=== PATIENT | female | born 1960 | race Caucasian/White ===

== ENCOUNTER 2016-11-29 02:34 | Emergency (ER) | payer OTHER ==
[2016-11-29 02:47] VITALS: BP 132/91; BMI 25.6
[2016-11-29 03:05] LABS: BILIRUBIN,URINE NEGATIVE (NEGATIVE); BLOOD/HEMOGLOBIN,URINE 2+ (NEGATIVE); GLUCOSE, URINE NEGATIVE (NEGATIVE); KETONES,URINE NEGATIVE (NEGATIVE); LEUKOCYTE ESTERASE ,URINE 3+ (NEGATIVE); NITRITES,URINE NEGATIVE (NEGATIVE); PROTEIN,URINE 1+ (NEGATIVE); UROBILINOGEN,URINE NORMAL (NORMAL)
--- NOTE | 2016-11-29 03:05 | DR.GENAD ---
HPI - PCP Primary Care Physician: nfd - Complaint/Symptoms Chief Complaint Doctors Comments: Patient complains of lower back pain for the past 24 hours getting worst tonight in the lower back and left leg and she thinks it is her sciatica acting up again. states she is having sharp pain in her lower back down her left leg to her foot. States the pain is 10 of 10 is why she called the ambulance. States she has had a "blue Flexeril" for pain. She has been having dysuria, fever but denies hematuria, nausea, vomiting, cold , cough, chest pain, SOB or recent trauma. Patient states something happened when she was little and she cannot take steriods according to nursing staff. She smokes 1/2 pack cigarettes daily but denies alcohol or drug usage. States she has not local doctor. Patient states she broke her back Sep 2015 and was sent to [place] and she don't know what they did. Chief Complaint:: lower back pain-lt side-pt says she thinks the pain is her sciatica-denies injury-pain o/s since last apr-worse tonight-ambulated in from ambulance - Nurses notes reviewed Nurses Notes Review: Yes - Source History Provided: Patient - Mode of Arrival Mode of Arrival: EMS - Timing Onset of Chief Complaint: 04/30/16 Came on: Gradually - Duration Duration: Constant How lon Duration: Days - Location Location: lower back pain - Modifying Factors Worsens:: movement Improves:: nothing PMH - PMH Past Medical History: Yes Past Medical History: Hypertension Past Surgical History: Yes Surgical History: CABG/Valve Surgery - Family History History of Family Medical Conditions: No Family Medical History: [place], Sudden Cardiac , Hypertension - Social History Does patient currently use any type of tobacco product: Yes Have you used tobacco products in the last 12 months: Yes Type of Tobacco Use: Cigarettes Does any household member use tobacco: Yes Alcohol Use: None Do you use any recreational Drugs:: No Lives With: Family Lives Where: Home - infectious screening In the last 2 months have you had wt loss of >10#?: NO Have you had fever, night sweats or hemotysis?: No Have you traveled outside the country in the last 6 months?: No Isolation: Standard ROS - Review of Systems Constitutional: No Symptoms Reported. negative: See HPI, Chills, Diaphoresis, Fever, Malaise, Weakness, Irritable, Fatigue, Loss of Appetite, Other Eyes: No Symptoms Reported. negative: See HPI, Eye Pain, Blurred Vision, Tearing, Discharge, Photophobia, Diplopia, Other ENTM: No Symptoms Reported. negative: See HPI, Ear Pain, Ear Discharge, Pulling on Ears, Hearing Loss, Nose Pain, Nose Discharge, Epistaxis, Nose Congestion, Mouth Pain, Mouth Swelling, Loose Teeth, Drooling, Throat Pain, Throat Swelling, Ear Foreign Body Respiratoy: No Symptoms Reported. negative: See HPI, Productive Cough, Non- Productive Cough, Moist Cough, Dry Cough, Hacking Cough, Barking Cough, Brassy Cough, Orthopnea, Short of Breath, Stridor, Wheezing, Hemoptysis, Other Cardiovascular: No Symptoms Reported. negative: See HPI, Chest Pain, Edema, Palpitations, Syncope, Cyanosis, Skin Mottling, Other Gastrointestinal/Abdominal: No Symptoms Reported. negative: See HPI, Abdominal Pain, Constipation, Diarrhea, Nausea, Vomiting, Food Intolerance, Other Genitourinary: No Symptoms Reported, Dysuria. negative: See HPI, Discharge, Frequency, Hematuria, Pain, Bleeding, Other Neurological: No Symptoms Reported. negative: See HPI, Anxiety, Depressed, Emotional Problems, Headache, Numbness, Paresthesia, Pre-existing Deficit, Seizure, Tingling, Tremors, Weakness, Dizziness, Problems Walking, Speech Problem, Other Musculoskeletal: No Symptoms Reported, Back Pain, Left, Hip Integumentary: No Symptoms Reported. negative: See HPI, Change in Color, Change in Hair/Nails, Dryness, Lesions, Lumps, Rash, Itching, Wound, Bruises, Juandice, Other Hematologic/Lymphatic: No Symptoms Reported Endocrine: No Symptoms Reported. negative: See HPI, Excessive Sweating, Flushing, Intolerance to Cold, Intolerance to Heat, Increased Hunger, Increased Thirst, Increased Urine, Unexplained Weight Gain, Unexplained Weight Loss, Failure to Thrive, Decreased Appetite, Other Psychiatric: No Symptoms Reported PE - Vital Signs Vitals: Temperature 97.8 F Pulse Rate 100 Respiratory Rate 16 Blood Pressure [Left Arm] 126/75 Blood Pressure 132/91 O2 Sat by Pulse Oximetry 100 - General Limitations: No Limitations General Appearance: Alert, In No Apparent Distress - Head Head Exam: Normal Inspection, Atraumatic, Normocephalic - Eyes Eye exam: Normal Appearance, PERRL, EOMI. negative: Scleral Icterus, Conjunctival Injection, Nystagmus, Miosis, Mydrasis, Periorbital Swelling, Periorbital Tenderness, Other - ENT ENT Exam: Normal Exam, Normal Oropharynx, Normal External Ear Exam, Mucous Membranes Moist, TM's Normal Bilaterally External Ear Exam: Normal External Inspection TM/Canal Exam: Bilateral Normal Nose Exam: Normal Nose Exam Mouth Exam: Normal Inspection. negative: Drooling, Trismus, Lip Swelling, Tongue Elevation, Tongue Swelling, Laceration, Other Throat Exam: Normal Inspection. negative: Tonsillar Erythema, Tonsillomegaly, Tonsillar Exudate, R Peritonsillar Mass, L Peritonsillar Mass, Muffled Voice, Other - Neck Neck Exam: Normal Inspection, Full ROM, Trachea Midline. negative: Tenderness, Meningismus, Lymphadenopathy, Thyromegaly, Other - Chest Chest Inspection: Normal Inspection, Symmetric Chest Wall Rise - Respiratory Respiratory Exam: Normal Lung Sounds Bilat Respiratory Exam: Bilateral Clear to Auscultation - Cardiovascular Cardiovascular Exam: Regular Rate, Normal Rhythm, Normal Heart Sounds. negative : Bradycardia, Tachycardia, Irregular Rhythm, Systolic Murmur, Diastolic Murmur , Rubs, Gallop, Clicks, JVD, +S1, +S2, +S3, +S4, Other - Abdominal Exam Abdominal Exam: Normal Inspection, Normal Bowel Sounds, Soft Abdominal Tenderness: negative: RUQ, RLQ, LUQ, LLQ, Epigastrium, Suprapubic, Diffuse, Mild, Moderate, Severe, Other - Extremities Extremities Exam: Normal Inspection, Full ROM, Normal Capillary Refill. negative: Tenderness, Edema, Joint Swelling, Calf Tenderness, Other - Back Back Exam: Normal Inspection, Full ROM, Tenderness (tender L2), Paraspinal Tenderness. negative: (R) CVA Tenderness, (L) CVA Tenderness, (R) Straight Leg Raise, (L) Straight Leg Raise - Neurologic Neurological Exam: Alert, Oriented X3, CN II-XII Intact, Reflexes Normal. negative: Normal Gait (gait not tested) - Psychiatric Psychiatric Exam: Normal Affect, Normal Mood - Skin Skin Exam: Warm, Dry, Intact, Normal Color ROR - Labs Reviewed Laboratory Results Reviewed?: Yes (All x-ray results reviewed and discussed with patient) Laboratory: Specimen Type Clean catch urine 11/29/16 02:41 Urine Color Yellow (YELLOW) 11/29/16 02:41 Urine Appearance Hazy (CLEAR) 11/29/16 02:41 Urine pH 6.0 (5.0 - 8.0) 11/29/16 02:41 Ur Specific [place] 1.020 (1.000-1.030) 11/29/16 02:41 Urine Protein 1+ (NEGATIVE) 11/29/16 02:41 Urine Glucose (UA) Negative (NEGATIVE) 11/29/16 02:41 Urine Ketones Negative (NEGATIVE) 11/29/16 02:41 Urine Occult Blood 2+ (NEGATIVE) 11/29/16 02:41 Urine Nitrite Negative (NEGATIVE) 11/29/16 02:41 Urine Bilirubin Negative (NEGATIVE) 11/29/16 02:41 Urine Urobilinogen Normal (NORMAL) 11/29/16 02:41 Ur Leukocyte Esterase 3+ (NEGATIVE) 11/29/16 02:41 Urine RBC 5-10 /HPF (NEGATIVE) 11/29/16 02:41 Urine WBC 30-40 /HPF (NEGATIVE) 11/29/16 02:41 Ur Squamous Epith Cells Moderate /HPF (NEGATIVE) 11/29/16 02:41 Urine Bacteria 1+ /HPF (NEGATIVE) 11/29/16 02:41 Ur Culture Indicated? Yes/culture set up 11/29/16 02:41 Urine Opiates Screen Negative (NEG=<300) 11/29/16 03:40 Urine Methadone Screen Negative (NEG=<300) 11/29/16 03:40 Ur Barbiturates Screen Negative (NEG=<200) 11/29/16 03:40 Ur Phencyclidine Scrn Negative (NEG=<25) 11/29/16 03:40 Ur Amphetamines Screen Negative (NEG=<1000) 11/29/16 03:40 U Benzodiazepines Scrn Positive (NEG=<200) A 11/29/16 03:40 Urine Cocaine Screen Negative (NEG=<300) 11/29/16 03:40 U Marijuana (THC) Screen Negative (NEG=<50) 11/29/16 03:40 - XRAY XRAY Interpreted by: Radiologist (CT lumbar: Anterior wedging of L2 consistent with burst type fracture with spinal cannal causing moderate spinal canal stenosis. Bilateral nnonobstructing nephrolithiasis) - Diagnosis Discharge Problem: Old fracture L2, bilateral nephrolithiasis, Spinal stenosis of lumbar region Chronic low back pain Qualifiers: Sciatica presence: with sciatica - Discharge Plan Disposition: HOME, SELF-CARE Condition: Stable Prescriptions: Ciprofloxacin HCl [CIPRO 500 MG TAB *] 500 mg PO Q12H #20 tab Nitrofurantoin Macrocrystal [Macrodantin 100 mg] 100 mg PO QID #20 cap Tramadol HCl [ULTRAM 50 MG *] 50 mg PO BID PRN #12 tab PRN Reason: Pain - Follow ups/Referrals Follow ups/Referrals: NFD,None [Primary Care Provider] - 3 days PETE DALE [CONSULTING PHYSICIAN] - 3 days BETSY GÓMEZ [STAFF PHYSICIAN] - 3 days - Instructions Instructions: Spinal Stenosis, Back Pain, Adult, Kidney Stones, [id number], Urinary Tract Infection, Lumbar Fracture
[2016-11-29 03:20] LABS: APPEARANCE,URINE HAZY (CLEAR); BACTERIA,URINE 1+ /HPF (NEGATIVE); COLOR,URINE YELLOW (YELLOW); SQUAMOUS EPITHELIAL CELL,UR MODERATE /HPF (NEGATIVE)
[2016-11-29] MEDS ORDERED: SOLU-MEDROL 125 MG VIAL IM ONE (03:35)
[2016-11-29] MEDS ORDERED: PHENERGAN INJ 25 MG IM ONE (03:36)
[2016-11-29] MEDS ORDERED: MOTRIN TAB 800 MG PO STA (03:38)
[2016-11-29] MEDS ORDERED: SOLU-MEDROL 125 MG VIAL ONE (03:41)
[2016-11-29] MEDS ORDERED: PHENERGAN INJ 25 MG ONE (03:41)
[2016-11-29] MEDS ORDERED: MOTRIN TAB 800 MG PO ONE (04:02)
--- NOTE | 2016-11-29 04:50 | CT ---
CT lumbar spine without contrast Indication: Back pain mostly affecting the left side without acute injury Comparison: None available Technique: Multiple axial images of the lumbar spine were obtained from the upper abdomen to the pel vis without administration of IV contrast. Sagittal and coronal reformats were performed and review ed. Radiation dose reduction techniques were performed utilizing adjustment for MA/kVP based on patient body size. Findings: There is anterior wedging of the L2 vertebral body with approximate 25% anterior vertebral body hei ght loss. There is retropulsion of the posterior vertebral body wall into the central canal causing mild spinal canal stenosis. There is focal kyphosis at this level as well. A syndesmophyte is noted at L1-2. The posterior elements appear unremarkable. The prevertebral soft tissues are normal in their appe arance. In addition, the surrounding paraspinous soft tissues are unremarkable. Bilateral nonobstructing nephrolithiasis. Moderate calcified atherosclerotic disease of the abdomina l aorta. IMPRESSION: 1.Mild anterior wedging of the L2 vertebral body with buckling of the posterior vertebral body wall consistent with a burst type fracture. Retropulsion of the posterior body wall into the spinal canal causes moderate spinal canal stenosis. Findings are most likely to represent chronic fracture defor mity and clinical correlation is needed. 2.Bilateral nonobstructing nephrolithiasis. Reported By:
[2016-11-29] MEDS ORDERED: DEMEROL INJ IM ONE (05:39)
[2016-11-29] MEDS ORDERED: LEVAQUIN TAB 500 MG PO STA (05:40)
[2016-11-29] MEDS ORDERED: DEMEROL INJ ONE (05:42)
[2016-11-29] MEDS ORDERED: LEVAQUIN TAB 500 MG ONE (05:42)
== END 2016-11-29 06:04 | disposition home or self-care (01) ==
LOC: ER 02:34
DX: N20.0 Calculus of kidney (principal); M48.06 Spinal stenosis, lumbar region; M54.5 Low back pain; B96.29 Other Escherichia coli [E. coli] as the cause of diseases classified elsewhere
CPT/HCPCS: 72131; 80307; 81001; 87086; 87088; 87186; 96372; 99283; G0434; J2175; J2550; J2930

== ENCOUNTER 2016-12-12 16:13 | Emergency (ER) | payer OTHER ==
[2016-12-12 16:20] VITALS: BP 146/104; BMI 26.3
[2016-12-12] MEDS ORDERED: NORFLEX INJ IM ONE (16:48)
[2016-12-12] MEDS ORDERED: MORPHINE SULFATE INJ 4 MG IM ONE (16:48)
[2016-12-12] MEDS ORDERED: ZOFRAN INJ 4 MG VIAL IM ONE (16:48)
--- NOTE | 2016-12-12 16:51 | DR.GENAD ---
HPI - HPI Comment HPI Comment: HISTORY BELOW. - Complaint/Symptoms Chief Complaint Doctors Comments: LOW BACK PAIN RADIATING TO THE LEGS. HISTORY OF KIDNEY STONE AND SCIATICA. NO INJURY. NO DYSURIA OR HEMETURIA. MEDS AT HOME DID NOT HELP. Chief Complaint:: SEVERE BACK PAIN, KIDNEY STONES - Nurses notes reviewed Nurses Notes Review: Yes - Source History Provided: Patient - Mode of Arrival Mode of Arrival: Ambulatory - Timing Onset of Chief Complaint: 12/11/16 Came on: Suddenly - Duration Duration: Constant Duration: Days - Severity Severity: Moderate PMH - PMH Past Medical History: Yes Past Medical History: Hypertension Past Medical History Comment: BYPASS, BROKEN BACK Past Surgical History: Yes Surgical History: Ortho Surgery, Other Past Surgical History Comment: BYPASS, R KNEE - Family History History of Family Medical Conditions: Yes Family Medical History: Diabetes Mellitus, Coronary Artery Disease, Hypertension - Social History Does patient currently use any type of tobacco product: Yes Have you used tobacco products in the last 12 months: Yes Type of Tobacco Use: Cigarettes How many years tobacco product used: 22 Does any household member use tobacco: No Alcohol Use: None Do you use any recreational Drugs:: No Lives With: Spouse Lives Where: Home - infectious screening In the last 2 months have you had wt loss of >10#?: NO Have you had fever, night sweats or hemotysis?: No Have you traveled outside the country in the last 6 months?: No Isolation: Standard ROS - Review of Systems Constitutional: No Symptoms Reported Eyes: No Symptoms Reported ENTM: No Symptoms Reported Respiratoy: No Symptoms Reported Cardiovascular: No Symptoms Reported Gastrointestinal/Abdominal: No Symptoms Reported Genitourinary: No Symptoms Reported Neurological: No Symptoms Reported Musculoskeletal: No Symptoms Reported, Back Pain, Leg Integumentary: No Symptoms Reported Hematologic/Lymphatic: No Symptoms Reported Endocrine: No Symptoms Reported All Other Systems: Reviewed and Negative PE - Vital Signs Vitals: Temperature 98.8 F Pulse Rate 100 Respiratory Rate 18 Blood Pressure [Left Arm] 126/75 Blood Pressure 146/104 O2 Sat by Pulse Oximetry 99 - General Limitations: No Limitations General Appearance: Alert - Head Head Exam: Normal Inspection - Eyes Eye exam: Normal Appearance - ENT ENT Exam: Normal External Ear Exam External Ear Exam: Normal External Inspection TM/Canal Exam: Bilateral Normal Nose Exam: Normal Nose Exam Mouth Exam: Normal Inspection Throat Exam: Normal Inspection - Neck Neck Exam: Normal Inspection - Chest Chest Inspection: Symmetric Chest Wall Rise - Respiratory Respiratory Exam: Normal Lung Sounds Bilat Respiratory Exam: Bilateral Clear to Auscultation - Cardiovascular Cardiovascular Exam: Regular Rate, Normal Rhythm, Normal Heart Sounds - Abdominal Exam Abdominal Exam: Normal Bowel Sounds, Soft. negative: Tenderness - Back Back Exam: Paraspinal Tenderness (LOWER BACK), Vertebral Tenderness (LOWER BACK) - Neurologic Neurological Exam: Alert, Oriented X3 - Psychiatric Psychiatric Exam: Anxious - Skin Skin Exam: Normal Color MDM - Differential Diagnosis Differential Diagnosis: LOWER BACK PAIN, SCIATICA, UTI Course - Treatment Treatment: SEE ORDERS - Education/Counseling Education/Counseling: Patient, Education Educated On: Diagnosis, Needs for Follow Up ROR - Labs Reviewed Laboratory Results Reviewed?: Yes Laboratory: Specimen Type Clean catch urine 12/12/16 17:14 Urine Color Yellow (YELLOW) 12/12/16 17:14 Urine Appearance Hazy (CLEAR) 12/12/16 17:14 Urine pH 6.0 (5.0 - 8.0) 12/12/16 17:14 Ur Specific [place] 1.010 (1.000-1.030) 12/12/16 17:14 Urine Protein Negative (NEGATIVE) 12/12/16 17:14 Urine Glucose (UA) Negative (NEGATIVE) 12/12/16 17:14 Urine Ketones Negative (NEGATIVE) 12/12/16 17:14 Urine Occult Blood 1+ (NEGATIVE) 12/12/16 17:14 Urine Nitrite Negative (NEGATIVE) 12/12/16 17:14 Urine Bilirubin Negative (NEGATIVE) 12/12/16 17:14 Urine Urobilinogen Normal (NORMAL) 12/12/16 17:14 Ur Leukocyte Esterase 3+ (NEGATIVE) 12/12/16 17:14 Urine RBC 1 - 3 /HPF (NEGATIVE) 12/12/16 17:14 Urine WBC 5 - 6 /HPF (NEGATIVE) 12/12/16 17:14 Ur Squamous Epith Cells Moderate /HPF (NEGATIVE) 12/12/16 17:14 Urine Bacteria Trace /HPF (NEGATIVE) 12/12/16 17:14 Ur Culture Indicated? No/not indicated 12/12/16 17:14 - Diagnosis Discharge Problem: Lumbosacral pain Sciatica Qualifiers: Laterality: right Qualified Code(s): M54.31 - Sciatica, right side - Discharge Plan Disposition: HOME, SELF-CARE Condition: Stable - Follow ups/Referrals Follow ups/Referrals: NFD,None [Primary Care Provider] - 3 days - Instructions Instructions: Back Pain, Adult, [id number], Sciatica Additional Instructions: RETURN TO ED IF WORSE. CONTINUE WITH PAIN MED YOU HAVE AT HOME.
[2016-12-12] MEDS ORDERED: NORFLEX INJ ONE (16:57)
[2016-12-12] MEDS ORDERED: ZOFRAN INJ 4 MG VIAL ONE (16:57)
[2016-12-12] MEDS ORDERED: MORPHINE SULFATE INJ 4 MG ONE (16:58)
[2016-12-12 17:53] LABS: BILIRUBIN,URINE NEGATIVE (NEGATIVE); BLOOD/HEMOGLOBIN,URINE 1+ (NEGATIVE); GLUCOSE, URINE NEGATIVE (NEGATIVE); KETONES,URINE NEGATIVE (NEGATIVE); LEUKOCYTE ESTERASE ,URINE 3+ (NEGATIVE); NITRITES,URINE NEGATIVE (NEGATIVE); PROTEIN,URINE NEGATIVE (NEGATIVE); UROBILINOGEN,URINE NORMAL (NORMAL)
[2016-12-12 18:12] LABS: APPEARANCE,URINE HAZY (CLEAR); BACTERIA,URINE TRACE /HPF (NEGATIVE); COLOR,URINE YELLOW (YELLOW); SQUAMOUS EPITHELIAL CELL,UR MODERATE /HPF (NEGATIVE)
[2016-12-12] MEDS ORDERED: DEMEROL INJ IVP ONE (18:50)
[2016-12-12] MEDS ORDERED: DEMEROL INJ IM ONE (18:55)
[2016-12-12] MEDS ORDERED: DEMEROL INJ ONE (18:57)
== END 2016-12-12 19:06 | disposition home or self-care (01) ==
LOC: ER 16:22
DX: M54.5 Low back pain (principal); M54.31 Sciatica, right side
CPT/HCPCS: 81001; 96372; 99283; J2175; J2270; J2360; J2405

== ENCOUNTER 2016-12-13 18:03 | Emergency (ER) | payer OTHER ==
[2016-12-13 18:11] VITALS: BP 142/84; BMI 25.9
--- NOTE | 2016-12-13 19:26 | DR.EXTPAIN ---
HPI - Time seen Time seen: 19:13 - PCP Primary Care Physician: NFD - Complaint/Symptoms Chief Complaint Doctor Comments: Patient presents with c/o back pain. She has a chronic condition, she has history of burst fracture of L2 with retropulsion of the osterior superior aspect of the vertebral body and unstable fracture. She admits to not having a primary care physician and was seen last week for pain management. She was advised to get with a primary care physician for chronic pain management. Chief Complaint:: PT. C/O LOWER BACK, LEFT FLANK, LEFT HIP, LEG, AND KNEE PAIN. PT. STATES SHE WAS SEEN IN THE ER RECENTLY AND WAS DIAGNOSED WITH HAVING MULTIPLE KIDNEY STONES. PT. STATES TODAY SHE FEELS LIKE IT IS MORE HER SCIATIC NERVE. - Source History Provided: Patient, EMS - Mode of arrival Mode of Arrival: EMS - Timing Onset of Chief Complaint: 12/06/16 PMH - PMH Past Medical History: Yes Past Medical History: Hypertension Past Surgical History: Yes Surgical History: Ortho Surgery, Other - Family History History of Family Medical Conditions: Yes Family Medical History: Diabetes Mellitus, Coronary Artery Disease, Hypertension - Social History Does patient currently use any type of tobacco product: Yes Have you used tobacco products in the last 12 months: Yes Type of Tobacco Use: Cigarettes Does any household member use tobacco: No Alcohol Use: None Do you use any recreational Drugs:: No Lives With: Spouse Lives Where: Home - infectious screening In the last 2 months have you had wt loss of >10#?: NO Have you had fever, night sweats or hemotysis?: No Have you traveled outside the country in the last 6 months?: No Isolation: Standard ROS - Review of Systems Constitutional: No Symptoms Reported Eyes: No Symptoms Reported ENTM: No Symptoms Reported Respiratoy: No Symptoms Reported Cardiovascular: No Symptoms Reported Gastrointestinal/Abdominal: No Symptoms Reported Genitourinary: No Symptoms Reported Neurological: No Symptoms Reported Musculoskeletal: No Symptoms Reported Integumentary: No Symptoms Reported Hematologic/Lymphatic: No Symptoms Reported Endocrine: No Symptoms Reported Psychiatric: No Symptoms Reported All Other Systems: Reviewed and Negative PE - Vital Signs Vitals: Temperature 98.7 F Pulse Rate 78 Respiratory Rate 17 Blood Pressure [Left Arm] 126/75 Blood Pressure 142/84 O2 Sat by Pulse Oximetry 100 - General General Appearance: Alert, In No Apparent Distress - Head Head Exam: Normal Inspection, Atraumatic - Eyes Eye exam: Normal Appearance, PERRL, EOMI, Scleral Icterus - ENT ENT Exam: Normal Exam - Neck Neck Exam: Normal Inspection - Chest Chest Inspection: Normal Inspection - Respiratory Respiratory Exam: Normal Lung Sounds Bilat Respiratory Exam: Bilateral Clear to Auscultation - Cardiovascular Cardiovascular Exam: Regular Rate, Normal Rhythm - Abdominal Exam Abdominal Exam: Normal Inspection Abdominal Tenderness: negative: RUQ, RLQ, LUQ, LLQ, Epigastrium, Suprapubic, Diffuse, Mild, Moderate, Severe, Other - Extremities Extremities Exam: Normal Inspection - Upper Extremities Shoulder Exam: Normal Inspection Arm Exam: Normal Inspection Elbow Exam: Normal Inspection, Full ROM Forearm Exam: Normal Inspection, Full ROM Hand Exam: Normal Inspection Neuromotor Exam: Normal Exam Neurosensory Exam: Normal Exam Hand Tendon Exam: Flexor Digitorium Profundus (Location) Upper Ext. Vascular Exam: Capillary Refill, Radial Pulse - Lower Extremities Hip/Pelvis Exam: Normal Inspection Upper Leg Exam: Normal Inspection Knee Exam: Normal Inspection Lower Leg Exam: Normal Inspection Ankle Exam: Normal Inspection Foot/Toe Exam: Normal Inspection Neurovascular/Tendon Exam: Normal Capillary Refill Gait Exam: Observed and Normal - Back Back Exam: Normal Inspection, Full ROM - Neurological Neurological Exam: Alert, Oriented X3, CN II-XII Intact - Psychiatric Psychiatric Exam: Normal Affect, Normal Mood - Skin Skin Exam: Warm, Dry Type of Lesion: Rash Distribution: Generalized - Diagnosis Discharge Problem: Chronic back pain Qualifiers: Back pain location: low back pain Back pain laterality: midline Sciatica presence: unspecified whether sciatica present Qualified Code(s): M54.5 - Low back pain; G89.29 - Other chronic pain - Discharge Plan Disposition: HOME, SELF-CARE Condition: Stable - Follow ups/Referrals Follow ups/Referrals: NFD,None [Primary Care Provider] - 3 days - Instructions Instructions: Chronic Back Pain
[2016-12-13] MEDS ORDERED: MORPHINE SULFATE INJ 2 MG IM ONE (19:32)
[2016-12-13] MEDS ORDERED: MORPHINE SULFATE INJ 2 MG ONE (19:33)
== END 2016-12-13 20:10 | disposition home or self-care (01) ==
LOC: ER 18:06
DX: M54.5 Low back pain (principal); G89.29 Other chronic pain
CPT/HCPCS: 96372; 99282; J2270

== ENCOUNTER 2016-12-31 03:36 | Emergency (ER) | payer OTHER ==
[2016-12-31 03:48] VITALS: BP 179/86; BMI 26.5
--- NOTE | 2016-12-31 04:08 | DR.GENAD ---
HPI - PCP Primary Care Physician: nfd - Complaint/Symptoms Chief Complaint:: chronic back pain pt states" my lt lower back and side is hurting me worse tonight" - Nurses notes reviewed Nurses Notes Review: Yes - Source History Provided: Patient - Mode of Arrival Mode of Arrival: EMS - Timing Onset of Chief Complaint: 12/31/16 Came on: Gradually - Duration Duration: Constant Duration: Hours - Location Location: left flank - Severity Severity: Moderate - Modifying Factors Worsens:: moving left leg - Associated Signs and Symptoms Associated Signs and Symptoms: none - Other History Other History: L-2 fx PMH - PMH Past Medical History: Yes Past Medical History: Hypertension Past Surgical History: Yes Surgical History: Ortho Surgery, Other - Family History History of Family Medical Conditions: Yes Family Medical History: Diabetes Mellitus, Coronary Artery Disease, Hypertension - Social History Type of Tobacco Use: Cigarettes Do you use any recreational Drugs:: No Lives With: Family Lives Where: Home - infectious screening In the last 2 months have you had wt loss of >10#?: NO Have you had fever, night sweats or hemotysis?: No Have you traveled outside the country in the last 6 months?: No Isolation: Standard ROS - Review of Systems Constitutional: No Symptoms Reported Eyes: No Symptoms Reported ENTM: No Symptoms Reported Respiratoy: No Symptoms Reported Cardiovascular: No Symptoms Reported Gastrointestinal/Abdominal: No Symptoms Reported Genitourinary: No Symptoms Reported Neurological: No Symptoms Reported Musculoskeletal: Hip (left hip pain) Integumentary: No Symptoms Reported Hematologic/Lymphatic: No Symptoms Reported Endocrine: No Symptoms Reported Psychiatric: No Symptoms Reported All Other Systems: Reviewed and Negative PE - Vital Signs Vitals: Temperature 97.6 F Pulse Rate 76 Respiratory Rate 18 Blood Pressure [Left Arm] 126/75 Blood Pressure 179/86 O2 Sat by Pulse Oximetry 99 - General Limitations: No Limitations General Appearance: Alert, In No Apparent Distress - Head Head Exam: Normal Inspection - Eyes Eye exam: Normal Appearance, EOMI. negative: Scleral Icterus, Conjunctival Injection - ENT ENT Exam: Normal Exam External Ear Exam: Normal External Inspection - Neck Neck Exam: Normal Inspection, Full ROM, Trachea Midline - Respiratory Respiratory Exam: negative: Accessory Muscle Use, Respiratory Distress Respiratory Exam: Bilateral Clear to Auscultation - Cardiovascular Cardiovascular Exam: Regular Rate - Abdominal Exam Abdominal Exam: Normal Inspection, Normal Bowel Sounds, Soft. negative: Distention, Tenderness, Guarding - Extremities Extremities Exam: Normal Inspection, Full ROM - Back Back Exam: (L) CVA Tenderness, (L) Straight Leg Raise - Neurologic Neurological Exam: Alert, Oriented X3, CN II-XII Intact - Psychiatric Psychiatric Exam: Normal Affect - Skin Skin Exam: Intact, Normal Color ROR - Labs Reviewed Laboratory: Specimen Type Clean catch urine 12/31/16 04:44 Urine Color Yellow (YELLOW) 12/31/16 04:44 Urine Appearance Cloudy (CLEAR) 12/31/16 04:44 Urine pH 6.0 (5.0 - 8.0) 12/31/16 04:44 Ur Specific [place] 1.025 (1.000-1.030) 12/31/16 04:44 Urine Protein 2+ (NEGATIVE) 12/31/16 04:44 Urine Glucose (UA) Negative (NEGATIVE) 12/31/16 04:44 Urine Ketones Negative (NEGATIVE) 12/31/16 04:44 Urine Occult Blood 2+ (NEGATIVE) 12/31/16 04:44 Urine Nitrite Negative (NEGATIVE) 12/31/16 04:44 Urine Bilirubin Negative (NEGATIVE) 12/31/16 04:44 Urine Urobilinogen 1+ (NORMAL) 12/31/16 04:44 Ur Leukocyte Esterase 3+ (NEGATIVE) 12/31/16 04:44 Urine RBC Cancelled 12/31/16 04:36 Urine WBC Cancelled 12/31/16 04:36 Ur Squamous Epith Cells Cancelled 12/31/16 04:36 Ur Transition Epith Cell Cancelled 12/31/16 04:36 Ur Renal Epithelial Cell Cancelled 12/31/16 04:36 Calcium Oxalate Crystal Cancelled 12/31/16 04:36 Cystine Crystals Cancelled 12/31/16 04:36 Uric Acid Crystals Cancelled 12/31/16 04:36 Triple Phos Crystals Cancelled 12/31/16 04:36 Tyrosine Crystals Cancelled 12/31/16 04:36 Other Crystals Cancelled 12/31/16 04:36 Amorphous Sediment Cancelled 12/31/16 04:36 Urine Bacteria Cancelled 12/31/16 04:36 Hyaline Casts Cancelled 12/31/16 04:36 Granular Casts Cancelled 12/31/16 04:36 Fine Granular Casts Cancelled 12/31/16 04:36 Coarse Granular Casts Cancelled 12/31/16 04:36 WBC Casts Cancelled 12/31/16 04:36 Other Casts Cancelled 12/31/16 04:36 Urine Mucus Cancelled 12/31/16 04:36 Urine Trichomonas Cancelled 12/31/16 04:36 Urine Yeast Cancelled 12/31/16 04:36 Urine Sperm Cancelled 12/31/16 04:36 Ur Culture Indicated? Cancelled 12/31/16 04:36 Urinalysis Comment QNS 12/31/16 04:44 Urine Opiates Screen Positive (NEG=<300) A 12/31/16 04:36 Urine Methadone Screen Negative (NEG=<300) 12/31/16 04:36 Ur Barbiturates Screen Negative (NEG=<200) 12/31/16 04:36 Ur Phencyclidine Scrn Negative (NEG=<25) 12/31/16 04:36 Ur Amphetamines Screen Negative (NEG=<1000) 12/31/16 04:36 U Benzodiazepines Scrn Positive (NEG=<200) A 12/31/16 04:36 Urine Cocaine Screen Negative (NEG=<300) 12/31/16 04:36 U Marijuana (THC) Screen Negative (NEG=<50) 12/31/16 04:36 - Diagnosis Discharge Problem: UTI (urinary tract infection) Qualifiers: Urinary tract infection type: acute cystitis Hematuria presence: with hematuria Qualified Code(s): N30.01 - Acute cystitis with hematuria Back pain Qualifiers: Back pain location: low back pain Chronicity: chronic Back pain laterality: left Sciatica presence: without sciatica Qualified Code(s): M54.5 - Low back pain; G89.29 - Other chronic pain - Discharge Plan Condition: Stable Prescriptions: Indomethacin [Indocin Cap 25 mg] 25 mg PO TID #30 cap Nitrofurantoin Monohyd Macro [Macrobid] 100 mg PO BID #14 cap - Follow ups/Referrals Follow ups/Referrals: NFD,None [Primary Care Provider] - 3 days - Instructions Instructions: Urinary Tract Infection, Chronic Pain
[2016-12-31] MEDS ORDERED: REGLAN INJ 10 MG VIAL IVP PRN (04:16)
[2016-12-31] MEDS ORDERED: BENADRYL INJ 50 MG VIAL IVP ONE (04:17)
[2016-12-31] MEDS ORDERED: REGLAN INJ 10 MG VIAL ONE (04:22)
[2016-12-31] MEDS ORDERED: BENADRYL INJ 50 MG VIAL ONE (04:22)
[2016-12-31 05:24] LABS: BILIRUBIN,URINE NEGATIVE (NEGATIVE); BLOOD/HEMOGLOBIN,URINE 2+ (NEGATIVE); GLUCOSE, URINE NEGATIVE (NEGATIVE); KETONES,URINE NEGATIVE (NEGATIVE); LEUKOCYTE ESTERASE ,URINE 3+ (NEGATIVE); NITRITES,URINE NEGATIVE (NEGATIVE); PROTEIN,URINE 2+ (NEGATIVE); UROBILINOGEN,URINE 1+ (NORMAL)
[2016-12-31 05:28] LABS: APPEARANCE,URINE CLOUDY (CLEAR); COLOR,URINE YELLOW (YELLOW)
[2016-12-31] MEDS ORDERED: MACROBID CAP 100 MG EXT REL PO ONE ×2 (05:36→05:59)
== END 2016-12-31 06:38 | disposition home or self-care (01) ==
LOC: ER 03:36
DX: N30.01 Acute cystitis with hematuria (principal); M54.5 Low back pain; G89.29 Other chronic pain
CPT/HCPCS: 80307; 81003; 96365; 96374; 96375; 99283; A4222; G0434; J1200; J2765

== ENCOUNTER → 2016-12-31 | Outpatient (CLI) | payer OTHER ==
[2016-12-31 03:48] VITALS: BP 179/86
--- NOTE | 2016-12-31 15:29 | RAD ---
Lumbar spine, five views Indication: Low back pain. Previous L2 fracture Comparison: CT 11/29/2016 Findings: There is unchanged appearance of the chronic L2 compression fracture. The remaining lumbar spine vertebral body heights are otherwise normally maintained. There is mild multilevel facet arth ropathy, most significant at L5-S1. No spondylolysis identified on the oblique images. Impression: No significant change in the chronic L2 compression deformity. Mild multilevel facet arthropathy. Reported By:
== END ==
LOC: RAD 14:43
PROVIDERS: ATTEND Specialist
DX: M54.5 Low back pain (principal)
CPT/HCPCS: 72110

== ENCOUNTER 2017-07-02 04:24 | Emergency (ER) | payer OTHER ==
[2017-07-02 04:33] VITALS: BP 162/87; BMI 27.4
[2017-07-02] MEDS ORDERED: NORCO 5/325 MG TAB PO ONE (04:59)
--- NOTE | 2017-07-02 05:02 | DR.GENAD ---
HPI - PCP Primary Care Physician: MT - HPI Comment HPI Comment: Lt. hip pain radiating down to the leg. this is a throbbing type ache. It worsens with prolonged standing and ambulation. - Complaint/Symptoms Chief Complaint:: LEFT HIP/LEG PAIN X 6 MONTHS Self Treatment fo Chief Complaint: TYLENOL - Nurses notes reviewed Nurses Notes Review: Yes - Source History Provided: Patient - Mode of Arrival Mode of Arrival: EMS - Timing Onset of Chief Complaint: 01/22/17 Came on: Gradually PMH - PMH Past Medical History: Yes Past Medical History: Hypertension Past Surgical History: Yes Surgical History: CABG/Valve Surgery, Ortho Surgery - Family History History of Family Medical Conditions: Yes Family Medical History: Diabetes Mellitus, Coronary Artery Disease, Hypertension - Social History Does patient currently use any type of tobacco product: Yes Have you used tobacco products in the last 12 months: Yes Type of Tobacco Use: Cigarettes Does any household member use tobacco: No Alcohol Use: None Do you use any recreational Drugs:: No Lives With: Spouse Lives Where: Home - infectious screening In the last 2 months have you had wt loss of >10#?: NO Have you had fever, night sweats or hemotysis?: No Have you traveled outside the country in the last 6 months?: No Isolation: Standard ROS - Review of Systems Constitutional: No Symptoms Reported Eyes: No Symptoms Reported ENTM: No Symptoms Reported Respiratoy: No Symptoms Reported Cardiovascular: No Symptoms Reported Gastrointestinal/Abdominal: No Symptoms Reported Genitourinary: No Symptoms Reported Neurological: No Symptoms Reported Musculoskeletal: Joint Pain, Left, Hip Integumentary: No Symptoms Reported Hematologic/Lymphatic: No Symptoms Reported Endocrine: No Symptoms Reported Psychiatric: No Symptoms Reported All Other Systems: Reviewed and Negative PE - Vital Signs Vitals: Temperature 98.4 F Pulse Rate 84 Respiratory Rate 16 Blood Pressure [Left Arm] 126/75 Blood Pressure 162/87 O2 Sat by Pulse Oximetry 97 - General Limitations: No Limitations General Appearance: Alert, In No Apparent Distress - Head Head Exam: Normal Inspection - Eyes Eye exam: Normal Appearance - ENT ENT Exam: Normal Exam - Neck Neck Exam: Normal Inspection, Full ROM - Chest Chest Inspection: Normal Inspection, Symmetric Chest Wall Rise - Respiratory Respiratory Exam: Normal Lung Sounds Bilat - Cardiovascular Cardiovascular Exam: Regular Rate, Normal Rhythm - Abdominal Exam Abdominal Exam: Normal Inspection, Normal Bowel Sounds, Soft - Extremities Extremities Exam: Normal Inspection - Back Back Exam: Normal Inspection, (L) Straight Leg Raise, Other (Lt. favere; pelvic rock on Lt. ) - Neurologic Neurological Exam: Alert, Oriented X3, CN II-XII Intact - Psychiatric Psychiatric Exam: Normal Affect, Normal Mood - Skin Skin Exam: Warm, Dry, Intact, Normal Color ROR - XRAY XRAY Interpreted by: Radiologist (no acute radiographic abnormality of the lt. hip or pelvis.) - Diagnosis Discharge Problem: Hip pain, left - Discharge Plan Disposition: HOME, SELF-CARE Condition: Stable - Follow ups/Referrals Follow ups/Referrals: NFD,None [Primary Care Provider] - 3 days - Instructions
[2017-07-02] MEDS ORDERED: NORCO 5/325 MG TAB ONE (05:11)
== END 2017-07-02 07:11 | disposition home or self-care (01) ==
LOC: ER 04:24
DX: M25.552 Pain in left hip (principal)
CPT/HCPCS: 73501; 99282

== ENCOUNTER 2018-01-16 15:40 | Emergency (ER) | payer OTHER ==
[2018-01-16 15:56] VITALS: BP 182/85; BMI 27.8
--- NOTE | 2018-01-16 17:06 | DR.GENAD ---
HPI - PCP Primary Care Physician: Dr. Mcgrath - HPI Comment HPI Comment: NO FEFER. DECREASE URINE OUTPUT. POOR ORAL INTAKE. SOME COUGH PRESENT. PATIENT IS GRIEVING FROM RECENT LOSS OF HER BROTHER. - Complaint/Symptoms Chief Complaint Doctors Comments: LOWER BACK PAIN GOING INTO LOWER ABDOMEN TIMES 2 WEEKS. Chief Complaint:: Pt c/o pain into left lower back for past two weeks. Describes pain as constant sharp pain exacerbated by taking a deep breath. Pt also states that she hasn't voided in two days. States that she hasn't been eating or drinking as much as she usually does because she has been depressed because of her brother's recent . Pt also c/o productive cough with light yellow sputum. Family states that pt was a little disoriented last nigth. - Nurses notes reviewed Nurses Notes Review: Yes - Source History Provided: Patient - Mode of Arrival Mode of Arrival: Ambulatory - Timing Onset of Chief Complaint: 12/26/17 Came on: Suddenly - Duration Duration: Constant Duration: Weeks PMH - PMH Past Medical History: Yes Past Medical History: Anxiety, COPD, Coronary Artery Disease, Depression, Hypertension Past Medical History Comment: thoracic output syndrome Past Surgical History: Yes Surgical History: CABG/Valve Surgery Past Surgical History Comment: right knee surgery x 6,. rib removed - Family History History of Family Medical Conditions: Yes Family Medical History: Diabetes Mellitus, Cancer, [place], Hypertension Family Medical History Comment: Liver Failure, Kidney Failure - Social History Does patient currently use any type of tobacco product: Yes Have you used tobacco products in the last 12 months: No Type of Tobacco Use: Cigarettes Does any household member use tobacco: Yes Alcohol Use: None Do you use any recreational Drugs:: No Lives With: Family - infectious screening In the last 2 months have you had wt loss of >10#?: NO Have you had fever, night sweats or hemotysis?: No Have you traveled outside the country in the last 6 months?: No Isolation: Standard ROS - Review of Systems Constitutional: Weakness, Fatigue. negative: Chills, Fever Eyes: No Symptoms Reported. negative: Eye Pain, Discharge ENTM: Nose Congestion. negative: Ear Pain, Nose Discharge, Throat Pain Respiratoy: Productive Cough, Short of Breath. negative: Non-Productive Cough, Wheezing, Hemoptysis Cardiovascular: No Symptoms Reported Gastrointestinal/Abdominal: Abdominal Pain. negative: Nausea, Vomiting Genitourinary: Other (DECREASE URINE OUTPUT.). negative: Dysuria, Hematuria Neurological: Headache, Weakness, Dizziness Musculoskeletal: Muscle Pain Integumentary: No Symptoms Reported Hematologic/Lymphatic: Easy Bleeding, Easy Bruising Endocrine: No Symptoms Reported All Other Systems: Reviewed and Negative PE - Vital Signs Vitals: Temperature 97.6 F Pulse Rate 100 Respiratory Rate 22 Blood Pressure [Left Arm] 126/75 Blood Pressure 182/85 O2 Sat by Pulse Oximetry 96 - General Limitations: No Limitations General Appearance: Alert - Head Head Exam: Normal Inspection - Eyes Eye exam: Normal Appearance - ENT ENT Exam: Normal External Ear Exam External Ear Exam: Normal External Inspection TM/Canal Exam: Bilateral Normal Nose Exam: Normal Nose Exam Mouth Exam: Normal Inspection Throat Exam: Normal Inspection - Neck Neck Exam: Trachea Midline - Chest Chest Inspection: Symmetric Chest Wall Rise - Respiratory Respiratory Exam: Normal Lung Sounds Bilat Respiratory Exam: Bilateral Clear to Auscultation - Cardiovascular Cardiovascular Exam: Regular Rate, Normal Rhythm, Normal Heart Sounds - Abdominal Exam Abdominal Exam: Normal Bowel Sounds, Soft, Tenderness Abdominal Tenderness: RLQ, LLQ, Moderate - Extremities Extremities Exam: Normal Inspection - Back Back Exam: Paraspinal Tenderness (LOWER BACK.) - Neurologic Neurological Exam: Alert, Oriented X3 - Psychiatric Psychiatric Exam: Normal Affect, Normal Mood - Skin Skin Exam: Normal Color MDM - Additional Information Additional Information Obtained From: Family - Differential Diagnosis Differential Diagnosis: LOW BACK PAIN, UTI, LOW ABD PAIN, GRIEF, PACREATITIS Course - Treatment Treatment: SEE ORDERS. - Education/Counseling Education/Counseling: Patient, Education Educated On: Diagnosis, Needs for Follow Up ROR - Labs Reviewed Laboratory Results Reviewed?: Yes Result Diagrams: 01/16/18 17:19 01/16/18 17:19 Laboratory: WBC 8.3 X10^3/uL (3.6-10.0) 01/16/18 17:19 RBC 3.77 X10^6/uL (3.5-5.4) 01/16/18 17:19 Hgb 12.3 g/dL (12.0-16.0) 01/16/18 17:19 Hct 36.2 % (36.0-47.0) 01/16/18 17:19 MCV 95.9 fL (80.0-100.0) 01/16/18 17:19 MCH 32.5 pg (27.0-34.0) 01/16/18 17:19 MCHC 33.9 g/dL (33.0-35.0) 01/16/18 17:19 RDW 16.5 % (11.6-16.5) 01/16/18 17:19 Plt Count 225 X10^3/uL (150.0-450.0) 01/16/18 17:19 MPV 8.8 fL (7.4-11.0) 01/16/18 17:19 Neut % (Auto) 59.4 % (42.0-75.0) 01/16/18 17:19 Lymph % (Auto) 31.5 % (21.0-51.0) 01/16/18 17:19 [place] % (Auto) 6.5 % (0.0-13.0) 01/16/18 17:19 Eos % (Auto) 2.2 % (0.9-2.9) 01/16/18 17:19 Baso % (Auto) 0.4 % (0.2-1.0) 01/16/18 17:19 Neut # (Auto) 4.9 x10^3/uL (2.2-4.8) H 01/16/18 17:19 Lymph # (Auto) 2.6 X10^3/uL (1.3-2.9) 01/16/18 17:19 [place] # (Auto) 0.5 x10^3/uL (0.3-0.8) 01/16/18 17:19 Eos # (Auto) 0.2 x10^3/uL (0.0-0.2) 01/16/18 17:19 Baso # (Auto) 0.0 X10^3/uL (0.0-0.1) 01/16/18 17:19 Absolute Nucleated RBC 0.0 /100WBC 01/16/18 17:19 Sodium 142 mmol/L (136-145) 01/16/18 17:19 Corrected Sodium 142 mmol/L (136-145) 01/16/18 17:19 Potassium 2.9 mmol/L (3.5-5.1) L* 01/16/18 17:19 Chloride 106 mmol/L (98-107) 01/16/18 17:19 Carbon Dioxide 25.6 mmol/L (21-32) 01/16/18 17:19 BUN 15 mg/dL (7-18) 01/16/18 17:19 Creatinine 0.87 mg/dL (0.55-1.02) 01/16/18 17:19 Est GFR (MDRD) Af Amer > 60 (>60) 01/16/18 17:19 Est GFR (MDRD) Non-Af > 60 (>60) 01/16/18 17:19 Glucose 113 mg/dL (65-99) H 01/16/18 17:19 Calcium 8.0 mg/dL (8.5-10.1) L 01/16/18 17:19 Corrected Calcium 8.6 mg/dL (8.5-10.1) 01/16/18 17:19 Total Bilirubin 0.40 mg/dL (0.2-1.0) 01/16/18 17:19 AST 15 Units/L (15-37) 01/16/18 17:19 ALT 11 Units/L (12-78) L 01/16/18 17:19 Alkaline Phosphatase 110 Units/L (46-116) 01/16/18 17:19 Total Protein 7.7 g/dL (6.4-8.2) 01/16/18 17:19 Albumin 3.2 g/dL (3.4-5.0) L 01/16/18 17:19 Globulin 4.5 g/dL (2.5-4.5) 01/16/18 17:19 Albumin/Globulin Ratio 0.7 Ratio (1.1-2.1) L 01/16/18 17:19 Amylase 67 Units/L (25-115) 01/16/18 17:19 Lipase 452 Units/L (73-393) H 01/16/18 17:19 Specimen Type Clean catch urine 01/16/18 17:[address] [place] (YELLOW) 01/16/18 17:12 Urine Appearance Cloudy (CLEAR) 01/16/18 17:12 Urine pH 5.0 (5.0 - 8.0) 01/16/18 17:12 Ur Specific [place] 1.025 (1.000-1.030) 01/16/18 17:12 Urine Protein 2+ (NEGATIVE) 01/16/18 17:12 Urine Glucose (UA) Negative (NEGATIVE) 01/16/18 17:12 Urine Ketones 1+ (NEGATIVE) 01/16/18 17:12 Urine Occult Blood 4+ (NEGATIVE) 01/16/18 17:12 Urine Nitrite Negative (NEGATIVE) 01/16/18 17:12 Urine Bilirubin 1+ (NEGATIVE) 01/16/18 17:12 Urine Urobilinogen 1+ (NORMAL) 01/16/18 17:12 Ur Leukocyte Esterase 3+ (NEGATIVE) 01/16/18 17:12 Urine RBC 5-10 /HPF (NONE SEEN) 01/16/18 17:12 Urine WBC 10-20 /HPF (NONE SEEN) 01/16/18 17:12 Ur Squamous Epith Cells Few /HPF (NEGATIVE) 01/16/18 17:12 Urine Bacteria 4+ /HPF (NEGATIVE) 01/16/18 17:12 Urine Yeast Few /HPF (NEGATIVE) 01/16/18 17:12 Ur Culture Indicated? Yes/culture set up 01/16/18 17:12 - Diagnosis Discharge Problem: UTI (urinary tract infection) Qualifiers: Urinary tract infection type: site unspecified Hematuria presence: without hematuria Qualified Code(s): N39.0 - Urinary tract infection, site not specified Pancreatitis Qualifiers: Chronicity: acute Pancreatitis type: unspecified pancreatitis type Acute pancreatitis complication: unspecified Qualified Code(s): K85.90 - Acute pancreatitis without necrosis or infection, unspecified Abdominal pain Qualifiers: Abdominal location: lower abdomen, unspecified Qualified Code(s): R10.30 - Lower abdominal pain, unspecified - Discharge Plan Disposition: HOME, SELF-CARE Condition: Stable Prescriptions: Ranitidine HCl [ZANTAC TAB 150 MG *] 150 mg PO BID #60 tab Sulfamethoxazole-Trimethoprim [BACTRIM DS TAB 800/160 MG *] 1 tab PO BID #20 tab - Follow ups/Referrals Follow ups/Referrals: NFD,None [Primary Care Provider] - 3 days - Instructions Instructions: Acute Pancreatitis, [id number], Urinary Tract Infection, Adult , [id number], Urinary Tract Infection, Adult Additional Instructions: RETURN TO ED IF WORSE.
[2018-01-16 17:20] LABS: BILIRUBIN,URINE 1+ (NEGATIVE); BLOOD/HEMOGLOBIN,URINE 4+ (NEGATIVE); GLUCOSE, URINE NEGATIVE (NEGATIVE); KETONES,URINE 1+ (NEGATIVE); LEUKOCYTE ESTERASE ,URINE 3+ (NEGATIVE); NITRITES,URINE NEGATIVE (NEGATIVE); PROTEIN,URINE 2+ (NEGATIVE); UROBILINOGEN,URINE 1+ (NORMAL)
[2018-01-16 17:26] LABS: BASOPHILS % (AUTO) 0.4 % (0.2-1.0); EOSINOPHILS # (AUTO) 0.2 x10^3/uL (0.0-0.2); EOSINOPHILS % (AUTO) 2.2 % (0.9-2.9); HEMATOCRIT 36.2 % (36.0-47.0); HEMOGLOBIN 12.3 g/dL (12.0-16.0); LYMPHOCYTES # (AUTO) 2.6 X10^3/uL (1.3-2.9); LYMPHOCYTES % (AUTO) 31.5 % (21.0-51.0); MEAN CORPUSCULAR HEMOGLOBIN 32.5 pg (27.0-34.0); MEAN CORPUSCULAR HGB CONC 33.9 g/dL (33.0-35.0); MEAN CORPUSCULAR VOLUME 95.9 fL (80.0-100.0); MEAN PLATELET VOLUME 8.8 fL (7.4-11.0); MONOCYTES # (AUTO) 0.5 x10^3/uL (0.3-0.8); MONOCYTES % (AUTO) 6.5 % (0.0-13.0); NEUTROPHILS # (AUTO) 4.9 x10^3/uL (2.2-4.8); NEUTROPHILS % (AUTO) 59.4 % (42.0-75.0); PLATELET COUNT 225 X10^3/uL (150.0-450.0); RED BLOOD COUNT 3.77 X10^6/uL (3.5-5.4); RED CELL DISTRIBUTION WIDTH 16.5 % (11.6-16.5); WHITE BLOOD COUNT 8.3 X10^3/uL (3.6-10.0)
[2018-01-16 17:28] LABS: APPEARANCE,URINE CLOUDY (CLEAR); BACTERIA,URINE 4+ /HPF (NEGATIVE); COLOR,URINE ORANGE (YELLOW); SQUAMOUS EPITHELIAL CELL,UR FEW /HPF (NEGATIVE)
[2018-01-16 17:29] LABS: YEAST,URINE FEW /HPF (NEGATIVE)
[2018-01-16 17:38] LABS: BLOOD UREA NITROGEN 15 mg/dL (7-18); CARBON DIOXIDE 25.6 mmol/L (21-32); CHLORIDE 106 mmol/L (98-107); COR NA(FOR HYPERGLY) 142 mmol/L (136-145); CREATININE 0.87 mg/dL (0.55-1.02); SODIUM 142 mmol/L (136-145); eGFR BLACK RACES > 60 (>60); eGFR NON BLACK RACES > 60 (>60)
[2018-01-16 17:42] LABS: ALANINE AMINOTRANSFERASE 11 Units/L (12-78); ALBUMIN 3.2 g/dL (3.4-5.0); ALKALINE PHOSPHATASE 110 Units/L (46-116); AMYLASE 67 Units/L (25-115); ASPARTATE AMINO TRANSFERASE 15 Units/L (15-37); COR CA(FOR HYPOALB) 8.6 mg/dL (8.5-10.1); LIPASE 452 Units/L (73-393); TOTAL PROTEIN 7.7 g/dL (6.4-8.2)
[2018-01-16] MEDS ORDERED: ROCEPHIN VIAL 1 GM IM ONE (17:54)
[2018-01-16] MEDS ORDERED: PEPCID TAB 20 MG PO ONE (17:57)
[2018-01-16] MEDS ORDERED: K-LYTE EFFERVESCENT PO SCH (18:00)
[2018-01-16] MEDS ORDERED: PEPCID TAB 20 MG ONE (18:00)
[2018-01-16] MEDS ORDERED: K-LYTE EFFERVESCENT ONE (18:00)
[2018-01-16] MEDS ORDERED: ROCEPHIN VIAL 1 GM ONE (18:00)
== END 2018-01-16 18:50 | disposition home or self-care (01) ==
LOC: ER 15:58
DX: K85.90 Acute pancreatitis without necrosis or infection, unspecified (principal); N39.0 Urinary tract infection, site not specified; R10.84 Generalized abdominal pain
CPT/HCPCS: 36415; 80053; 81001; 82150; 83690; 85025; 87086; 96372; 99283; J0696